=== PATIENT | male | born 2000 | race Two or more races ===

== ENCOUNTER 2024-09-12 21:01 | Emergency (ER) | payer MEDICAID, SELFPAY ==
[2024-09-12 21:02] VITALS: BMI 33.5
[2024-09-12 21:17] VITALS: BP 138/94; PULSE 120; RESP 20; TEMP 36.4; O2SAT 98
--- NOTE | 2024-09-12 21:23 | EKG_ITS ---
[facility] Test Date: 2024-09-12 Pat Name: SATISH PIZARRO Department: Room: - Gender: Male [employer]: : 2000 Requested By: Sudheer Mcdonald ([facility]) Order Number: [id number] Reading MD: Sudheer Mcdonald ([facility]) Measurements Intervals [place] Rate: 130 P: 75 WA: 130 QRS: 66 QRSD: 89 T: 62 QT: 283 QTc: 417 Interpretive Statements SINUS TACHYCARDIA ABNORMAL RHYTHM ECG Compared to ECG 12/24/2020 15:34:09 Atrial flutter no longer present Left ventricular hypertrophy no longer present /store/S0/[id number]
--- NOTE | 2024-09-12 21:23 | XR_ITS ---
Examination: PA lateral chest 2 views Technique: Upright PA lateral chest 2 views Exam date and time: September 12, [id number] hrs. Comparison December 24, 2020 Indications: Coughing today. Findings: Normal heart size No pneumonia or pulmonary edema The osseous structures are intact Impression: No active disease
--- NOTE | 2024-09-12 21:25 | PD.EDURI ---
Upper Respiratory Inf. RME/HPI General Chief Complaint: Flu Like Symptoms Stated Complaint: COUGH X2 WEEKS, FEELS SOB Time Seen by Provider: 09/12/24 21:20 Source: patient Arrival date/time: 09/12/24 21:01 23-year-old male presents emergency department complaining of cough that is been ongoing for 2 weeks and shortness of breath that started today. Patient denies any fever, chills, chest pain, nausea vomiting, diarrhea, or any other associated symptoms. Mode of arrival: ambulatory Limitations: no limitations Related Data Allergies Allergy/AdvReac Type Severity Reaction Status Date / Time Penicillins Allergy Mild Hives Verified 06/20/24 06:37 Review of Systems Review of Systems Systems Reviewed: All systems reviewed, normal except as documented Constitutional Constitutional: Reports system reviewed and no additional complaints, except as documented, Denies body ache(s), Denies chills and Denies fever(s) Eyes Eyes: Reports system reviewed and no additional complaints, except as documented and Denies change in vision ENT Ears, Nose, Mouth, and Throat: Reports system reviewed and no additional complaints, except as documented, Denies disequilibrium, Denies dizziness, Denies sore throat and Denies vertigo Cardiovascular Cardiovascular: Reports system reviewed and no additional complaints, except as documented, Denies chest pain and Reports dyspnea Respiratory Respiratory: Reports system reviewed and no additional complaints, except as documented, Denies chest congestion, Reports cough and Reports dyspnea Gastrointestinal Gastrointestinal: Reports system reviewed and no additional complaints, except as documented, Denies abdominal pain, Denies nausea and Denies vomiting Musculoskeletal Musculoskeletal: Reports system reviewed and no additional complaints, except as documented, Denies abnormal gait and Denies arthralgias Integumentary/Breasts Skin/Breast: Reports system reviewed and no additional complaints, except as documented, Denies erythema, Denies rash and Denies wounds Neurologic Neurologic: Reports system reviewed and no additional complaints, except as documented, Denies abnormal gait, Denies disequilibrium, Denies dizziness and Denies vertigo Past Medical History Past Medical History CARDIAC: Negative Congestive Heart Failure RESPIRATORY: Negative Chronic Obstructive Pulmonary Disease (COPD) GENITOURINARY: Negative Renal Disease ENDOCRINE: Negative Diabetes Mellitus Type 1 or Diabetes Mellitus Type 2 Social History SMOKING STATUS: Current every day smoker ED Exam General Limitations: Present no limitations General appearance: Present alert and in no apparent distress Head Head exam: Present atraumatic Eye Eye exam: Present normal appearance, PERRL and EOMI ENT ENT exam: Present normal exam, normal oropharynx and mucous membranes moist Neck Neck exam: Present normal inspection, full ROM and trachea midline Chest Chest inspection: Present normal inspection and symmetric chest wall rise Respiratory Respiratory exam: Present normal lung sounds bilaterally and wheezes (Bilateral lower lobe inspiratory wheeze) Cardiovascular Cardiovascular exam: Present regular rate, normal rhythm and normal heart sounds Abdominal Exam Abdominal exam: Present soft and normal bowel sounds Extremities Exam Extremities exam: Present normal inspection and full ROM Back Exam Back exam: Present normal inspection and full ROM Neurological Exam Neurological exam: Present alert, oriented X3 and CN II-XII intact Psychiatric Psychiatric exam: Present normal affect and normal mood Skin Skin exam: Present warm, dry, intact and normal color Course Quality Measures none Orders Category Date Time Status Bedside COVID-19 Antigen Test NOW Care 09/12/24 21:23 Completed Bedside Influenza A&B Antigen Test NOW Care 09/12/24 21:23 Completed EKG (ED ONLY) *Do not use* NOW Care 09/12/24 21:24 Completed EKG (ED Only) Stat Exams 09/12/24 21:23 Draft XR chest 2V Stat Exams 09/12/24 21:23 Completed Drug Screen,Urine Stat Lab 09/12/24 22:19 Completed Strep A Rapid Stat Lab 09/12/24 21:32 Completed ALBUTEROL RT 0.5ml [Proventil Rt 0.5ml] Med 09/12/24 21:24 Discontinued 5 mg INH X1 ONE Ipratropium [place] Rt Lilliam [Atrovent Rt Lilliam] Med 09/12/24 21:24 Discontinued 1 mg INH X1 ONE Sodium Chloride Rt [place]illi[place] 0.9% [NS Rt [place]illi[place] 0.9%] Med 09/12/24 21:24 Discontinued 3 ml INH PRN PRN Vital Signs Vital signs: Vital Signs Temperature 97.6 F 09/12/24 21:17 Pulse Rate 120 H 09/12/24 21:17 Respiratory Rate 20 09/12/24 21:17 Blood Pressure 138/94 H 09/12/24 21:17 Pulse Oximetry (%) 98 09/12/24 21:17 Oxygen Delivery Method Room Air 09/12/24 21:17 98% room air within normal limits Procedures -ED EKG Interpretation #1: Date of EK09/12/24 Time of EK:33 Rate: 130 Interpretation: Interpreted by me EKG Impression: No acute ST-T changes, No ectopy, No ischemic changes, Sinus tachycardia and Normal QRS Upper Respiratory Infection MDM Narrative MDM Narrative:: 23-year-old male presents emergency department complaining of cough that is been ongoing for 2 weeks and shortness of breath that started today. Patient denies any fever, chills, chest pain, nausea vomiting, diarrhea, or any other associated symptoms. Bilateral lower lobe inspiratory wheeze on auscultation that significantly improved after breathing treatment. Patient appears nontoxic and is hemodynamically stable. Chest x-ray was negative for any pneumonic infiltrates EKG did show sinus tach and toxicology positive for cocaine. Heart rate did improve after patient given several large cups of water that he tolerated well. Patient discharged and instructed to follow-up with primary care provider and stop using cocaine. Patient data External records reviewed:: [facility] previous records Clinical information provided by:: patient and parent Social determinants that could affect healthcare access:: substance use Patient has the following chronic illnesses:: See chart How is presenting disease/condition affected by chronic disease/condition?: exacerbated by Evaluation data The following diagnostics were reviewed and interpreted by me:: lab results and radiology exam(s) Lab and/or radiology exams considered but not ordered:: Ordered Interpretation Summary: Interpreted by me Medications / Prescriptions Medications or Prescriptions considered but not ordered:: Ordered Medication administrations:: Medication Administration History Discontinued Medications Albuterol (Albuterol Rt 2.5 Mg/0.5 Ml Nebu) 5 mg INH X1 ONE Stop: 09/12/24 21:25 Last Admin: 09/12/24 21:54 Dose: 5 mg Documented By: NE Ipratropium [place] (Ipratropium Rt 0.5 Mg/ 2.5 Ml Nebu) 1 mg INH X1 ONE Stop: 09/12/24 21:25 Last Admin: 09/12/24 21:54 Dose: 1 mg Documented By: NE Sodium Chloride (Sodium Chloride Rt [place] 0.9% 3 Ml Nebu) 3 ml INH PRN PRN PRN Reason: SOLN Stop: 10/12/24 21:23 Given Consultations Consultation(s) initiated? (list below): No Diagnosis Upper Respiratory Differential Diagnosis: upper respiratory infection, croup, otitis media, sinusitis, viral infection, bronchitis, influenza and pharyngitis Most likely diagnosis given after review of the tests above:: Cocaine use Viral infection Admission Indicated Admission indicated?: not indicated Admission Request Was there a request for admission?: No Disposition Plan Disposition Plan: Discharge Discharge Attestation Discharge Attestation: The patient and all family members were given an opportunity to ask questions and understood the discharge instructions. Discharge instructions specifically effects, indications for sooner follow up or return to the emergency department, and the expected course of current diagnosis. Patient condition: Stable Discharge Plan Plan Patient Disposition: HOME (Self Care) Disposition Comment: Stable Prescriptions/Referrals Referrals: Williams Escamilla MD [Primary Care Provider] - In 1 week Problem List Clinical Impression: Cocaine use, Viral infection Patient/Caregiver Discharge Instructions Discharge Activity: activity as tolerated Education Materials: Substance Abuse and Traumatic ..., ED Viral Syndrome (Adult) Additional Instructions: Drink plenty of water and stay hydrated. Stop using cocaine. Follow-up with primary care provider in 24 to 48 hours and return to emergency department for any worsening symptoms or as needed. Print Language: Chinese Stand Alone Forms: Ramandeep Award Info., Patient Portal Info Letter WARNER/RAVI Supervising Physician WARNER/RAVI Supervising Physician: Dr. Wick
[2024-09-12 21:54] VITALS: PULSE 120; PULSE 129; RESP 20; O2SAT 98
[2024-09-12] MEDS: ALBUTEROL RT 2.5 MG/0.5 ML NEBU 5 MG INH (21:54)
[2024-09-12] MEDS: IPRATROPIUM RT 0.5 MG/ 2.5 ML NEBU 1 MG INH (21:54)
[2024-09-12 23:32] LABS: Strep A Rapid Negative (Negative)
[2024-09-12 23:42] LABS: Amphetamine/Methamp Scrn,U Negative (Negative); Barbiturate Screen,Urine Negative (Negative); Benzodiazepines Screen,Urine Negative (Negative); Benzoylecgonine Screen, Ur Positive (Negative); Fentanyl Screen,Urine Negative (Negative); Opiate Screen,Urine Negative (Negative); THC Screen,Urine Negative (Negative)
[2024-09-12 23:51] VITALS: BP 127/87; PULSE 125; RESP 18; TEMP 36.6; O2SAT 96
[2024-09-13 01:03] VITALS: PULSE 88
== END 2024-09-13 01:04 | disposition home or self-care (01) ==
PROVIDERS: Emergency Provider Emergency Medicine; PCP Family Medicine
DX: B34.9 Viral infection, unspecified (principal); F14.90 Cocaine use, unspecified, uncomplicated; R00.0 Tachycardia, unspecified
CPT/HCPCS: 71046; 80307; 87400; 87651; 87811; 93005; 94640; 99283